=== PATIENT | male | born 1980 | race Caucasian/White ===

== ENCOUNTER 2017-01-09 11:00 | Emergency (ER) | payer OTHER ==
[2017-01-09 12:18] LABS: BASOPHIL % 0.4 % (0-2); PLATELET COUNT 295 x10^3mcL (130-400); RED CELL DISTRIBUTION WIDTH 13.1 % (11.5-14.5)
[2017-01-09 12:23] LABS: CALCIUM 8.2 mg/dL (8.5-10.1); CARBON DIOXIDE 30.4 mmol/L (21-32); CHLORIDE SERUM 103 mmol/L (98-107); CREATININE SERUM 0.8 mg/dL (0.7-1.3); GFR1 > 60 mL/min; GLUCOSE SERUM 183 mg/dL (74-106); POTASSIUM SERUM 4.2 mmol/L (3.5-5.1); SODIUM SERUM 139 mmol/L (136-145)
[2017-01-09 12:35] LABS: ALBUMIN 3.3 g/dL (3.4-5.0); ALKALINE PHOSPHATASE 105 U/L (46-116); ALT/SGPT 27 U/L (16-63); AMYLASE 62 U/L (25-115); AST/SGOT 32 U/L (15-37); BILIRUBIN TOTAL 0.2 mg/dL (0.20-1.00); CHOLESTEROL 195 mg/dL (<200); HDL CHOLESTEROL 44 mg/dL (40-60); LIPASE 164 IU/L (73-393); T4(THYROXINE) 4.8 ug/dL (4.7-13.3)
[2017-01-09 12:48] LABS: UA SPECIFIC GRAVITY 1.025 (1.005-1.035); microscopic required? YES; urine erythrocyte 1+ (NEGATIVE)
[2017-01-09 12:57] LABS: AMPHETAMINE QUAL UR POSITIVE (NEG <=1000)
[2017-01-09 15:05] VITALS: BP 134/89
== END 2017-01-09 15:05 | disposition home or self-care (01) ==
LOC: ED 11:00
PROVIDERS: Emergency Medicine
DX: E11.9 Type 2 diabetes mellitus without complications (principal); E78.00 Pure hypercholesterolemia, unspecified; E46 Unspecified protein-calorie malnutrition; G43.909 Migraine, unspecified, not intractable, without status migrainosus; F17.210 Nicotine dependence, cigarettes, uncomplicated; Z88.0 Allergy status to penicillin
CPT/HCPCS: 83880; 99406; J1815; J7030; Q0092

== ENCOUNTER 2017-01-23 23:22 | Emergency (ER) | payer OTHER ==
[2017-01-23 23:30] VITALS: BP 179/109
== END 2017-01-24 00:21 | disposition left against medical advice (07) ==
LOC: ED 23:22
DX: Z53.21 Procedure and treatment not carried out due to patient leaving prior to being seen by health care provider (principal)

== ENCOUNTER 2017-02-10 16:55 | Emergency (ER) | payer OTHER ==
[2017-02-10 19:16] VITALS: BP 152/94
== END 2017-02-10 19:18 | disposition home or self-care (01) ==
LOC: ED 16:55
DX: R07.89 Other chest pain (principal); I10 Essential (primary) hypertension; E11.9 Type 2 diabetes mellitus without complications; G43.909 Migraine, unspecified, not intractable, without status migrainosus; Z88.0 Allergy status to penicillin
CPT/HCPCS: J1885